=== PATIENT | male | born 1995 | race Caucasian/White ===

== ENCOUNTER 2017-12-08 11:43 | Emergency (ER) | payer OTHER ==
[~2017-12-08] VITALS: Ht 180.3 cm; Wt 65.8 kg
[2017-12-08 12:16] LABS: BASOPHILS ABSOLUTE AUTO 0.08 K/mm3 (0.00-0.23); BASOPHILS PERCENT AUTO 0 % (0-2); EOSINOPHILS ABSOLUTE AUTO 0.01 K/mm3 (0.00-0.68); EOSINOPHILS PERCENT AUTO 0 % (0-6); Hematocrit 47.4 % (37.0-53.0); Hemoglobin 16.2 g/dL (13.5-17.5); IMMATURE GRAN ABSOLUTE AUTO 0.12 K/mm3 (0.00-0.10); IMMATURE GRAN PERCENT AUTO 1 % (0-1); LYMPHOCYTES ABSOLUTE AUTO 2.36 K/mm3 (0.84-5.20); LYMPHOCYTES PERCENT AUTO 10 % (21-46); MONOCYTES PERCENT AUTO 6 % (4-13); Mean Corpuscular HGB 29.9 pg (26.0-34.0); Mean Corpuscular HGB Conc 34.2 g/dL (31.5-36.5); Mean Corpuscular Volume 88 fL (80-100); Mean Platelet Volume 11.1 fL (9.1-12.4); NEUTROPHILS ABSOLUTE AUTO 19.69 K/mm3 (1.96-9.15); NEUTROPHILS PERCENT AUTO 84 % (41-73); Platelet Count 268 K/mm3 (150-400); RDW Coefficient Variation 12.2 % (11.7-14.2); RDW Standard Deviation 39.4 fL (35.1-46.3); Red Blood Cell Count 5.42 M/mm3 (4.30-5.90); White Blood Cell Count 23.56 K/mm3 (4.00-11.30)
[2017-12-08 12:39] LABS: Alanine Aminotransfer (ALT/SGP 29 U/L (12-78); Albumin, Blood 5.1 g/dL (3.4-5.0); Albumin/Globulin Ratio 1.3 (0.8-1.8); Alk Phos 90 U/L (50-136); Anion Gap 18 mmol/L (6-16); Aspartate Aminotrans (AST/SGOT 26 U/L (12-37); Bilirubin, Total 0.7 mg/dL (0.1-1.0); Blood Urea Nitrogen 17 mg/dL (8-24); Bun/Creatinine Ratio 22.3 (12.0-20.0); CO2, Blood 18 mmol/L (21-32); Calcium, Blood 9.3 mg/dL (8.5-10.1); Chloride, Blood 105 mmol/L (98-108); Creatinine, Blood 0.76 mg/dL (0.60-1.20); Globulin, Blood 3.8 g/dL (2.2-4.0); Glomerular Filtration Rate >60 (60-); Glucose, Blood 108 mg/dL (70-99); Potassium, Blood 3.3 mmol/L (3.5-5.5); Sodium, Blood 141 mmol/L (136-145); Total Protein, Blood 8.9 g/dL (6.4-8.2)
[2017-12-08] MEDS ORDERED: Zofran Odt4 MG PO (14:24)
== END 2017-12-08 14:28 | disposition home or self-care (01) ==
LOC: ER 11:43
PROVIDERS: Physician Assistant
DX: R11.2 Nausea with vomiting, unspecified (principal); R19.7 Diarrhea, unspecified
CPT/HCPCS: 36415; 80053; 83690; 85025; 96374; 99283-25; J2405

== ENCOUNTER 2018-09-03 11:17 | Emergency (ER) | payer OTHER ==
[~2018-09-03] VITALS: Ht 180.3 cm; Wt 65.8 kg
[~2018-09-03 11:17] MED LIST: Zofran Odt4 MG PO
== END 2018-09-03 13:38 | disposition home or self-care (01) ==
LOC: ER 11:17
DX: S22.32XA Fracture of one rib, left side, initial encounter for closed fracture (principal); S20.411A Abrasion of right back wall of thorax, initial encounter; F17.210 Nicotine dependence, cigarettes, uncomplicated; V89.2XXA Person injured in unspecified motor-vehicle accident, traffic, initial encounter
CPT/HCPCS: 71046; 99284-25

== ENCOUNTER 2018-12-27 11:24 | Emergency (ER) | payer OTHER ==
[~2018-12-27] VITALS: Ht 175.3 cm; Wt 72.6 kg
[2018-12-27 12:39] LABS: Source, Urine Clean Catch
[2018-12-27 12:51] LABS: Appearance, Urine Clear (Clear); Bilirubin, Urine Neg (Neg); Blood, Urine Neg (Neg); Color, Urine Yellow (P-Yellow); Glucose Qualitative, Urine Neg (Neg); Ketones, Urine Neg (Neg); Leukocyte Esterase, Urine Neg (Neg); Nitrite, Urine Neg (Neg); Protein, Urine Neg (Neg); Specific Gravity, Urine 1.015 (1.003-1.022); Urobilinogen, Urine NORM (Normal)
[2018-12-30 00:06] LABS: CHLAMYDIA TRACHOMATIS, NAA Negative (Negative)
[2018-12-31 08:56] LABS: NEISSERIA GONORRHOEAE, NAA Positive (Negative)
== END 2018-12-27 14:20 | disposition home or self-care (01) ==
LOC: ER 11:24
PROVIDERS: Physician Assistant
DX: R36.9 Urethral discharge, unspecified (principal); N48.89 Other specified disorders of penis; F17.210 Nicotine dependence, cigarettes, uncomplicated
CPT/HCPCS: 81003; 87491; 87591; 96372; 99283-25; J0696

== ENCOUNTER 2019-04-04 12:12 | Emergency (ER) | payer OTHER ==
[~2019-04-04] VITALS: Ht 182.9 cm; Wt 65.8 kg
== END 2019-04-04 15:07 | disposition home or self-care (01) ==
LOC: ER 12:12
DX: N50.1 Vascular disorders of male genital organs (principal); F17.210 Nicotine dependence, cigarettes, uncomplicated
CPT/HCPCS: 76870; 99283-25

== ENCOUNTER 2021-04-04 22:55 | Emergency (ER) | payer OTHER ==
[~2021-04-04] VITALS: Ht 177.8 cm; Wt 68.0 kg
[2021-04-04] MEDS ORDERED: CEPH500 PO (23:51)
== END 2021-04-05 00:08 | disposition home or self-care (01) ==
LOC: ER 22:55
DX: L02.31 Cutaneous abscess of buttock (principal); F17.210 Nicotine dependence, cigarettes, uncomplicated
CPT/HCPCS: A9270

== ENCOUNTER 2023-06-03 19:35 | Emergency (ER) | payer OTHER ==
[~2023-06-03] VITALS: Ht 177.8 cm; Wt 74.8 kg
[~2023-06-03 19:35] MED LIST changes: +Bactrim Ds Tab1 EACH PO; +CEPH500 PO
[2023-06-03 19:42] VITALS: BP 158/103
[2023-06-03] MEDS ORDERED: Amoxicillin/Clavulanate K 875 MG Tab PO ONE (21:50)
[2023-06-03] MEDS ORDERED: Ketorolac Tromethamine 10 MG Tab PO ONE (21:50)
[2023-06-03] MEDS ORDERED: AMOCLA875 PO (21:51)
== END 2023-06-03 22:04 | disposition home or self-care (01) ==
LOC: ER 19:35
DX: K08.89 Other specified disorders of teeth and supporting structures (principal); Z91 Personal risk factors, not elsewhere classified; F17.210 Nicotine dependence, cigarettes, uncomplicated; Z88.1 Allergy status to other antibiotic agents; Z88.2 Allergy status to sulfonamides
CPT/HCPCS: 64400; 99282-25; A9270

== ENCOUNTER 2024-02-14 08:59 | Emergency (ER) | payer OTHER ==
[~2024-02-14] VITALS: Ht 180.3 cm; Wt 70.8 kg
[~2024-02-14 08:59] MED LIST changes: +AMOCLA875 PO
[2024-02-14] MEDS ORDERED: DiphenhydrAMINE HCl 50 MG/ML 1ML Vial IV ONE (09:35)
[2024-02-14] MEDS ORDERED: Prochlorperazine Edisylate 10 mg Vial IV ONE (09:35)
[2024-02-14] MEDS ORDERED: Ketorolac Tromethamine 15mg Vial IV ONE (09:35)
[2024-02-14] MEDS ORDERED: Dexamethasone Sod Phos 10 MG/ML 1ML VIAL IV ONE (09:35)
[2024-02-14 10:23] LABS: BASOPHILS ABSOLUTE AUTO 0.03 K/mm3 (0.00-0.23); BASOPHILS PERCENT AUTO 0 % (0-2); EOSINOPHILS ABSOLUTE AUTO 0.09 K/mm3 (0.00-0.68); EOSINOPHILS PERCENT AUTO 1 % (0-6); Hematocrit 43.6 % (37.0-53.0); Hemoglobin 15.3 g/dL (13.5-17.5); IMMATURE GRAN ABSOLUTE AUTO 0.01 K/mm3 (0.00-0.10); IMMATURE GRAN PERCENT AUTO 0 % (0-1); LYMPHOCYTES ABSOLUTE AUTO 2.78 K/mm3 (0.84-5.20); LYMPHOCYTES PERCENT AUTO 39 % (21-46); MONOCYTES ABSOLUTE AUTO 0.57 K/mm3 (0.16-1.47); MONOCYTES PERCENT AUTO 8 % (4-13); Mean Corpuscular HGB 31.1 pg (26.0-34.0); Mean Corpuscular HGB Conc 35.1 g/dL (31.5-36.5); Mean Corpuscular Volume 89 fL (80-100); Mean Platelet Volume 10.6 fL (9.1-12.4); NEUTROPHILS PERCENT AUTO 51 % (41-73); Platelet Count 179 K/mm3 (150-400); RDW Coefficient Variation 12.2 % (11.7-14.2); RDW Standard Deviation 39.8 fL (35.1-46.3); Red Blood Cell Count 4.92 M/mm3 (4.30-5.90); White Blood Cell Count 7.08 K/mm3 (4.00-11.30)
[2024-02-14 10:44] LABS: Albumin, Blood 4.2 g/dL (3.4-5.0); Albumin/Globulin Ratio 1.4 (0.8-1.8); Bilirubin, Total 0.6 mg/dL (0.1-1.0); Bun/Creatinine Ratio 16.1 (12.0-20.0); Calcium, Blood 8.9 mg/dL (8.5-10.1); Creatinine, Blood 0.75 mg/dL (0.60-1.20); Globulin, Blood 3.1 g/dL (2.2-4.0); Potassium, Blood 3.9 mmol/L (3.5-5.5); Total Protein, Blood 7.3 g/dL (6.4-8.2)
[2024-02-14 11:12] VITALS: BP 163/95
== END 2024-02-14 12:47 | disposition home or self-care (01) ==
LOC: ER 08:59
PROVIDERS: Physician Assistant
DX: G43.909 Migraine, unspecified, not intractable, without status migrainosus (principal); F17.210 Nicotine dependence, cigarettes, uncomplicated; Z88.1 Allergy status to other antibiotic agents
CPT/HCPCS: 70450; 80053; 83735; 85025; 96374; 96375; 99284-25; J0780; J1100; J1200; J1885

== ENCOUNTER 2024-08-20 04:36 | Emergency (ER) | payer OTHER ==
[~2024-08-20] VITALS: Ht 180.3 cm; Wt 75.3 kg
[2024-08-20 04:47] VITALS: BP 138/73
[2024-08-20] MEDS ORDERED: HYDR1TAB94 PO (05:33)
== END 2024-08-20 05:56 | disposition home or self-care (01) ==
LOC: ER 04:36
DX: S91.001A Unspecified open wound, right ankle, initial encounter (principal); F17.210 Nicotine dependence, cigarettes, uncomplicated; W18.30XA Fall on same level, unspecified, initial encounter; Z88.1 Allergy status to other antibiotic agents
CPT/HCPCS: 29515; 73610; 99283-25

== ENCOUNTER 2025-03-17 04:16 | Emergency (ER) | payer OTHER ==
[~2025-03-17] VITALS: Ht 180.3 cm; Wt 68.0 kg
[~2025-03-17 04:16] MED LIST changes: +HYDR1TAB94 PO
[2025-03-17 04:28] VITALS: BP 171/78
[2025-03-17] MEDS ORDERED: PENVK500 PO (05:30)
[2025-03-17] MEDS ORDERED: Ibuprofen600 MG PO (05:31)
== END 2025-03-17 05:59 | disposition home or self-care (01) ==
LOC: ER 04:16
DX: K04.7 Periapical abscess without sinus (principal); F17.210 Nicotine dependence, cigarettes, uncomplicated; Z88.2 Allergy status to sulfonamides; Z88.1 Allergy status to other antibiotic agents; Z59.89 Other problems related to housing and economic circumstances
CPT/HCPCS: 99282; A9270